=== PATIENT | female | born 1960 | race Hispanic/Latino ===

== ENCOUNTER 2022-10-06 13:01 | Emergency (ER) | payer BC ==
[2022-10-06 13:56] LABS: #Basophils 0.1 10x3/uL (0.0-0.2); #Eosinphils 0.2 10x3/uL (0.0-0.5); #Monocytes 0.7 10x3/uL (0.0-1.1); %Basophils 1.4 % (0.0-2.0); %Eosinophils 2.6 % (0.0-6.0); %Lymphocytes 27.3 % (18.0-47.0); %Monocytes 8.5 % (0.0-10.0); Hemoglobin 13.7 g/dL (12.0-15.5); Mean Corpuscular HGB CONC 33.5 g/dL (32.0-36.0); Mean Corpuscular Hemoglobin 32.7 pg (27.0-33.0); Mean Corpuscular Volume 97.6 fl (81.6-98.3); Mean Platelet Volume 10.5 fl (7.4-10.4); Platelet Count 353 10x3/uL (150-450); RBC Distribution Width 12.6 % (11.5-14.5); Red Blood Cell (RBC) Count 4.19 10x6/uL (3.90-5.03); White Blood Cell (WBC) Count 8.3 10x3/uL (3.5-10.5)
[2022-10-06 14:13] LABS: PTT 29.5 sec (22.0-33.0); Prothrombin Time 10.9 sec (9.5-12.1)
[2022-10-06 14:15] LABS: ALT (SGPT) 23 U/L (8-55); AST (SGOT) 25 U/L (5-34); Albumin 4.6 g/dL (3.4-4.8); Alkaline Phosphatase 97 U/L (40-110); Anion Gap 15 mmol/L (10-20); BUN (Urea Nitrogen) 12 mg/dL (9.8-20.1); Bilirubin, Total 0.6 mg/dL (0.2-1.2); Calc. Creatinine Clearance 0 mL/min (70-130); Calcium 9.7 mg/dL (7.8-10.44); Carbon Dioxide 26 mmol/L (23-31); Chloride 106 mmol/L (98-107); Estimated GFR 99; Globulin 2.7 g/dL (2.4-3.5); Glucose 100 mg/dL (80-115); Potassium 3.6 mmol/L (3.5-5.1); Protein, Total 7.3 g/dL (5.8-8.1); Sodium 143 mmol/L (136-145)
[2022-10-06] MEDS ORDERED: Labetalol HCl 100 MG/20 ML VIAL ONE (14:40)
[2022-10-06] MEDS ORDERED: Lorazepam 2 MG/ML VIAL ONE (14:40)
== END 2022-10-06 15:18 | disposition short-term general hospital (02) ==
LOC: CSHERS 13:01
DX: I62.00 Nontraumatic subdural hemorrhage, unspecified (principal); R53.1 Weakness
CPT/HCPCS: 70450; 80053; 84484; 85025; 85610; 85730; 93005; 96374; 96375; J2060